=== PATIENT | male | born 1990 | race Caucasian/White ===

== ENCOUNTER 2019-04-13 14:58 | Emergency (ER) | payer MEDICAID ==
[2019-04-13] MEDS ORDERED: ULTRAM 50 MG PO ONE (15:31)
[2019-04-13] MEDS ORDERED: AMOXIL 500 MG PO ONE (15:31)
[2019-04-13] MEDS ORDERED: ULTRAM 50 MG ONE (15:33)
[2019-04-13] MEDS ORDERED: AMOXIL 500 MG ONE (15:34)
--- NOTE | 2019-04-13 15:37 | ERPHSYRPT ---
- History of Present Illness Time Seen by Provider: 04/13/19 15:07 Source: patient Exam Limitations: no limitations Patient Subjective Stated Complaint: pt here for toothache to lower right jaw for 4 days Triage Nursing Assessment: pt waliked in, resp easy, skin w/d/p, pt has broken tooth to rigth back jaw Physician History: Pt has been c/o tooth ache x 4 days, denies recent injury, no dental work, his right posterior molar has been broken for "a while", but denies recent pain, c/ o headaches, no vomiting, fever, difficulty swallowing or other complaints. Timing/Duration: gradual onset Severity: severe ENT Location: dental Prearrival Treatment: no prearrival treatment Modifying Factors: Improves With: nothing Associated Symptoms: headache, jaw pain, tooth pain, No sore throat, No difficulty swallowing, No voice change Allergies/Adverse Reactions: No Known Drug Allergies Allergy (Unverified 04/13/19 15:09) Immunizations Up to Date: Yes - Review of Systems Constitutional: No Symptoms Eyes: No Symptoms Ears, Nose, & Throat: Other (tooth ache) Respiratory: No Symptoms Cardiac: No Symptoms Abdominal/Gastrointestinal: No Symptoms Genitourinary Symptoms: No Symptoms Musculoskeletal: No Symptoms Skin: No Symptoms Neurological: No Symptoms Psychological: No Symptoms All Other Systems: Reviewed and Negative - Past Medical History Pertinent Past Medical History: No - Past Surgical History Past Surgical History: Yes Musculoskeletal: Amputation Other Surgical History: finger 2013 - Social History Smoking Status: Current every day smoker Exposure to second hand smoke: No Drug Use: none Patient Lives Alone: No - Nursing Vital Signs Nursing Vital Signs: Initial Vital Signs Temperature 98.6 F 04/13/19 15:05 Pulse Rate 76 04/13/19 15:05 Respiratory Rate 16 04/13/19 15:05 Blood Pressure 147/97 04/13/19 15:05 O2 Sat by Pulse Oximetry 96 04/13/19 15:05 Pain Scale Pain Intensity 9 - Physical Exam General Appearance: no apparent distress Nasal Exam: normal inspection Throat Exam: pharynx normal, dental tenderness, moist mucus membranes, No pharynx swelling, No tongue swollen, No tonsillar exudate, No voice changes ( right posterior molar ( wisdom tooth is missing) with severe caries, the posterior, labial cusp has been broken, no severe bgm swelling or purulent discharge, no jaw swelling) Neck Exam: normal inspection, non-tender, supple, No lymphadenopathy (R), No lymphadenopathy (L) Cardiovascular/Respiratory Exam: chest non-tender, normal breath sounds, regular rate/rhythm, heart sounds normal Abdominal Exam: non-tender, soft Neurologic Exam: alert, oriented x 3, cooperative, normal mood/affect Skin Exam: normal color, warm, dry, No rash, No diaphoresis SpO2 Interpretation: normal SpO2: 96 O2 Delivery: Room Air - Progress Progress: improved Progress Note: 04/13/19 15:35 Pt was started on PO Amoxicillin and Ultram, rinse his mouth frequently with warm saline solution, advised to contact Dentist in 2 days. Counseled pt/family regarding: diagnosis, need for follow-up (dentist in 2-3 days) - Departure Departure Disposition: Home Clinical Impression: Dental caries Condition: Stable Critical Care Time: No Instructions: Tooth Decay, Adult (DC), Dental Pain (DC) Additional Instructions: Rinse mouth frequently with warm saline solution, and follow up with dentist in 2-3 days, return if severe headaches, vomiting, lethargy, high fever> 102 F, difficulty swallowing! Prescriptions: Amoxicillin 875 mg PO BID #20 tablet Tramadol HCl 50 mg [Ultram 50 mg] 50 mg PO Q6H PRN #10 tablet PRN Reason: Pain
[2019-04-13 16:03] VITALS: BP 130/80; PULSE 82; O2SAT 95
== END 2019-04-13 15:58 | disposition home or self-care (01) ==
LOC: ED 14:58
DX: K02.9 Dental caries, unspecified (principal)
CPT/HCPCS: 99283; A9270-GY